=== PATIENT | male | born 1955 | race Asian ===

== ENCOUNTER 2018-08-05 23:20 | Emergency (ER) | payer BC ==
[~2018-08-05] VITALS: Ht 170.2 cm; Wt 73.0 kg
[2018-08-06] MEDS ORDERED: AMLODIPINE 5MG TABLET PO SCH (00:45)
[2018-08-06 01:36] LABS: CLARITY URINE CLEAR (CLEAR); COLOR URINE YELLOW (YELLOW); KETONES URINE NEGATIVE (NEGATIVE); LEUKOCYTE ESTERASE URINE NEGATIVE (NEGATIVE); NITRITE URINE NEGATIVE (NEGATIVE); OCCULT BLOOD URINE NEGATIVE (NEGATIVE); PROTEIN URINE NEGATIVE (NEGATIVE); SPECIFIC GRAVITY URINE 1.009 (1.005-1.030); UROBILINOGEN URINE 0.2 E.U./dL (0.2-1.0)
[2018-08-06 01:48] VITALS: BP 168/87
== END 2018-08-06 01:49 | disposition home or self-care (01) ==
LOC: ER 23:20
DX: I10 Essential (primary) hypertension (principal)
CPT/HCPCS: 82962; 99283